=== PATIENT | female | born 1990 | race Two or more races ===

== ENCOUNTER 2025-01-02 08:18 | Emergency (ER) | payer MEDICAID, SELFPAY ==
[2025-01-02 08:19] VITALS: BMI 30.2
[2025-01-02 08:28] VITALS: BP 129/79; PULSE 64; RESP 16; TEMP 36.8; O2SAT 99
--- NOTE | 2025-01-02 08:35 | EDNOTE_ITS ---
<Statement entered by Iram Sandra MD - 01/02/25 17:53> As co-signing physician, I was present and available for consult prn. I concur with the plan and care as documented by the midlevel provider. Upper Extremity Injury RME/HPI General Chief Complaint: Hand/Wrist Problems Stated Complaint: PAIN TO L HAND Source: patient Arrival date/time: 01/02/25 08:18 34-year-old female with no known medical history presents to the emergency room with a chief complaint of pain and tenderness to the left hand. Patient has a cyst that has been going on for the last 2 months. Mode of arrival: ambulatory Limitations: no limitations Related Data Previous Rx's ?Medication ?Instructions ?Recorded ciprofloxacin HCl 500 mg tablet 500 mg PO BID #14 tabs 07/04/22 (Cipro) ibuprofen 600 mg tablet 600 mg PO TID PRN pain #30 t abs 07/04/22 tamsulosin 0.4 mg capsule (Flomax) 0.4 mg PO QDAY #10 caps 07/04/22 hydrocodone 5 mg-acetaminophen 325 1 tab PO Q8H PRN pa in #7 tabs 04/18/24 mg tablet ibuprofen 800 mg tablet (IBU) 800 mg PO Q8H #20 tabs 0 04/18/24 Allergies Allergy/AdvReac Type Severity Reaction Status Date / Time No Known Allergies Allergy Verified 01/02/25 08:19 Review of Systems Review of Systems Systems Reviewed: All systems reviewed, normal except as documented Constitutional Constitutional: Reports system reviewed and no additional complaints, except as documented, Denies fatigue, Denies fever(s), Denies headache(s) and Denies weakness Eyes Eyes: Reports system reviewed and no additional complaints, except as documented, Denies blurry vision and Denies change in vision ENT Ears, Nose, Mouth, and Throat: Reports system reviewed and no additional complaints, except as documented, Denies otalgia, Denies headache(s), Denies nasal congestion, Denies throat swelling and Denies vertigo Cardiovascular Cardiovascular: Reports system reviewed and no additional complaints, except as documented, Denies chest pain, Denies dyspnea and Denies dyspnea on exertion Respiratory Respiratory: Reports system reviewed and no additional complaints, except as documented, Denies chest congestion, Denies cough, Denies dyspnea, Denies dyspnea on exertion and Denies wheezing Gastrointestinal Gastrointestinal: Reports system reviewed and no additional complaints, except as documented, Denies abdominal pain, Denies cramping, Denies nausea and Denies vomiting Genitourinary Genitourinary: Reports system reviewed and no additional complaints, except as documented Musculoskeletal Musculoskeletal: Reports system reviewed and no additional complaints, except as documented and Denies back pain Integumentary/Breasts Skin/Breast: Reports system reviewed and no additional complaints, except as documented and Reports wounds (Ganglion cyst) Neurologic Neurologic: Reports system reviewed and no additional complaints, except as documented, Denies confusion, Denies headache(s), Denies lack of coordination, Denies vertigo and Denies weakness Psychiatric Psychiatric: Reports system reviewed and no additional complaints, except as documented, Denies anxiety, Denies confusion, Denies depression, Denies paranoia, Denies suicidal ideation and Denies tactile hallucinations Endocrine Endocrine: Reports system reviewed and no additional complaints, except as documented and Denies fatigue Hematologic/Lymphatic Hematologic/Lymphatic: Reports system reviewed and no additional complaints, except as documented and Denies lymphadenopathy Allergic/Immunologic Allergic/Immunologic: Reports system reviewed and no additional complaints, except as documented, Denies throat swelling, Denies urticaria and Denies wheezing Past Medical History Past Medical History CARDIAC: Negative Congestive Heart Failure RESPIRATORY: Negative Chronic Obstructive Pulmonary Disease (COPD) GENITOURINARY: Negative Renal Disease ENDOCRINE: Negative Diabetes Mellitus Type 1 or Diabetes Mellitus Type 2 Social History SMOKING STATUS: Never smoker ED Exam General Limitations: Present no limitations General appearance: Present alert and in no apparent distress Head Head exam: Present atraumatic Eye Eye exam: Present normal appearance, PERRL and EOMI ENT ENT exam: Present normal exam, normal oropharynx and mucous membranes moist Neck Neck exam: Present normal inspection, full ROM and trachea midline Chest Chest inspection: Present normal inspection and symmetric chest wall rise Respiratory Respiratory exam: Present normal lung sounds bilaterally Cardiovascular Cardiovascular exam: Present regular rate, normal rhythm and normal heart sounds Abdominal Exam Abdominal exam: Present soft and normal bowel sounds Extremities Exam Extremities exam: Present normal inspection and full ROM Expanded Upper Extremity Exam Shoulder exam: Present normal inspection Arm exam: Present normal inspection Elbow exam: Present normal inspection Forearm/Wrist exam: Present normal inspection Hand exam: Present normal inspection and tenderness Hand L/R back image: 2 1. 2 cm ganglion cyst to the posterior hand. The cyst is mobile. There is no erythema there is no signs of any infection. Vascular exam: Normal capillary refill Back Exam Back exam: Present normal inspection and full ROM Neurological Exam Neurological exam: Present alert, oriented X3 and CN II-XII intact Psychiatric Psychiatric exam: Present normal affect and normal mood Skin Skin exam: Present warm, dry, intact and normal color Course Quality Measures none Vital Signs Vital signs: Vital Signs Temperature 98.2 F 01/02/25 08:28 Pulse Rate 64 01/02/25 08:28 Respiratory Rate 16 01/02/25 08:28 Blood Pressure 129/79 01/02/25 08:28 Pulse Oximetry (%) 99 01/02/25 08:28 Oxygen Delivery Method Room Air 01/02/25 08:28 Extremity Injury MDM Narrative MDM Narrative:: 34-year-old female with no known medical history presents to the emergency room with a chief complaint of pain and tenderness to the left hand. Patient has a cyst that has been going on for the last 2 months. Patient is hemodynamically stable and in no apparent distress Physical examination shows a 3 cm ganglion cyst to the posterior hand. There is no signs of erythema or no signs of infection the area is not warm to the touch. Patient states this has been going on for the last 2 months and has increased in size. Patient was educated to follow-up with her primary care provider for referral for removal of this ganglion cyst Patient was discharged and educated to follow-up with primary care provider in the next 24 to 48 hours and return to the emergency room for any evidence of worsening signs or symptoms Patient data External records reviewed:: [facility] previous records Clinical information provided by:: patient Social determinants that could affect healthcare access:: none Patient has the following chronic illnesses:: No chronic illness How is presenting disease/condition affected by chronic disease/condition?: no chronic disease Evaluation data The following diagnostics were reviewed and interpreted by me:: lab results and radiology exam(s) Lab and/or radiology exams considered but not ordered:: Labs and radiology exams considered and ordered Interpretation Summary: N/A Medications / Prescriptions Medications or Prescriptions considered but not ordered:: No medication given Medication administrations:: No medication given Consultations Consultation(s) initiated? (list below): No Diagnosis Upper Extremity Injury Differential Diagnosis: other (Ganglion cyst) Most likely diagnosis given after review of the tests above:: Ganglion cyst/abscess Admission Indicated Admission indicated?: not indicated Admission Request Was there a request for admission?: No Disposition Plan Disposition Plan: Discharge Discharge Attestation Discharge Attestation: The patient and all family members were given an opportunity to ask questions and understood the discharge instructions. Discharge instructions specifically effects, indications for sooner follow up or return to the emergency department, and the expected course of current diagnosis. Patient condition: Stable Discharge Plan Plan Patient Disposition: HOME (Self Care) Disposition Comment: Stable Prescriptions/Referrals Prescriptions/Med Rec: No Action ciprofloxacin HCl [Cipro] 500 mg tablet 500 mg PO BID Qty: 14 0RF tamsulosin [Flomax] 0.4 mg capsule 0.4 mg PO QDAY Qty: 10 0RF ibuprofen 600 mg tablet 600 mg PO TID PRN (Reason: pain) Qty: 30 0RF ibuprofen [IBU] 800 mg tablet 800 mg PO Q8H Qty: 20 0RF hydrocodone-acetaminophen 5-325 mg tablet 1 tab PO Q8H MDD 3 PRN (Reason: pain) Qty: 7 0RF Problem List Clinical Impression: Ganglion cyst Patient/Caregiver Discharge Instructions Education Materials: Ganglion Cyst: Hand, Treating Ganglia, ED Ganglion Cyst Additional Instructions: Por favor, consulte con [facility] de [facility] en las pr?ximas 24 a 48 horas. Actualmente tiene un quiste ganglionar en la mano; no est? infectado. Deber? consultar con chávez [facility]?dico de cabecera para que le derive para la extirpaci?n de kalia quiste ganglionar. Print Language: Nigerien Stand Alone Forms: Ivette Award Info., Patient Portal Info Letter PA/ENGINEERING DESIGN MANAGER Supervising Physician PA/ENGINEERING DESIGN MANAGER Supervising Physician: Dr. SANDRA
== END 2025-01-02 08:49 | disposition home or self-care (01) ==
LOC: SERX 08:37
PROVIDERS: Emergency Provider Emergency Medicine
DX: M67.442 Ganglion, left hand (principal)
CPT/HCPCS: 99281

== ENCOUNTER → 2025-01-30 | Outpatient (CLI) | payer MEDICAID, SELFPAY ==
--- NOTE | 2025-01-30 15:20 | XR_ITS ---
Examination: Wrist, left 3 views Technique: Wrist AP, oblique, lateral 3 views Date and time of exam: January 30, 2025 1524 hours INDICATIONS: Wrist pain years FINDINGS: Adequate bone density. No fracture or dislocation. No avascular necrosis No erosive or other significant arthritic change IMPRESSION: No erosive or other significant arthritic change
--- NOTE | 2025-01-30 15:20 | XR_ITS ---
Examination: Hand, left 3 views Technique: Hand AP, oblique, lateral 3 views Date and time of exam: January 30, 2025 at 1524 hours INDICATIONS: Onset hand pain beginning one month ago FINDINGS: No fracture or dislocation No erosive or other significant arthritic change No opaque foreign bodies IMPRESSION: No erosive or other significant arthritic change
== END | disposition home or self-care (01) ==
LOC: CDIM 14:54
PROVIDERS: Referring Provider Nurse Practitioner Gerontology; Visit Provider Nurse Practitioner Gerontology
DX: M25.532 Pain in left wrist (principal); M79.642 Pain in left hand
CPT/HCPCS: 73110; 73130